=== PATIENT | female | born 1950 | race Caucasian/White ===

== ENCOUNTER 2020-03-25 21:33 | Emergency (ER) | payer MEDICARE, MEDICAID ==
[~2020-03-25] VITALS: Ht 160 cm; Wt 78.0 kg
[2020-03-25 21:42] VITALS: BP 148/57
--- NOTE | 2020-03-26 00:38 | NUR ---
PT CURRENTLY IN . Begun STATED HE WILL BRING PATIENT TO [facility] WHEN FINISHED.
== END 2020-03-26 01:32 | disposition home or self-care (01) ==
LOC: ED 03-26 01:00
DX: S90.32XA Contusion of left foot, initial encounter (principal); M79.672 Pain in left foot; J44.9 Chronic obstructive pulmonary disease, unspecified; I10 Essential (primary) hypertension; Z87.891 Personal history of nicotine dependence; X58.XXXA Exposure to other specified factors, initial encounter; Y93.89 Activity, other specified; Y92.89 Other specified places as the place of occurrence of the external cause; Y99.8 Other external cause status
CPT/HCPCS: 99284